=== PATIENT | female | born 1980 | race Caucasian/White ===

== ENCOUNTER → 2020-05-13 | Outpatient (CLI) | payer BC ==
--- NOTE | 2020-05-18 07:26 | BMR ---
EXAMINATION TYPE: MR breast BILAT wo/w con DATE OF EXAM: 05/13/2020 COMPARISON: 3-D bilateral breast mammogram October 02, 2015 BI-RADS 0. Right breast complete ultrasound October 16, 2015 BI-RADS 2. HISTORY: Breast cancer screening, family hx breast/ovarian cancer TECHNIQUE: A series of fat and water weighted images in the long and short axis views of both breasts are obtained in conjunction with dynamic contrast MRI with subtraction technique. The patient was i njected with 6 mL intravenous Gadavist gadolinium contrast. Three-dimensional and additional postpr ocessing imaging is created on independent workstation and reviewed during official interpretation of this study. FINDINGS: Scattered fibroglandular tissue is redemonstrated throughout both breasts. T2 and STIR weig hted images show no significant cystic change in either breast. There is no concerning axillary adeno cody identified bilaterally. T1-weighted images show no suspicious fat-containing masses. Dynamic po stcontrast imaging shows minimal background enhancement bilaterally. Delayed dynamic imaging shows no suspicious internal mammary adenopathy bilaterally. With regards to the right breast. No suspicious skin thickening is seen. No pathologic enhancement or enhancing masses identified. The chest wall is intact. With regards to the left breast, no suspicious skin thickening is seen. No pathologic enhancement or enhancing mass is identified. The chest wall is intact. IMPRESSION: No MRI evidence for invasive malignancy in either breast. BI-RADS 1 negative study right breast. BI-RADS 1 negative study left breast Recommendation: Some consider annual MRI surveillance in high risk patients. ACR advises annual mammo gram in high risk patient before age 40.
== END | disposition home or self-care (01) ==
LOC: RADMRIMAIN 18:38
PROVIDERS: ATTEND Obstetrics & Gynecology
DX: Z12.39 Encounter for other screening for malignant neoplasm of breast (principal); Z80.41 Family history of malignant neoplasm of ovary; Z80.3 Family history of malignant neoplasm of breast
CPT/HCPCS: 77049; C8937; A9585

== ENCOUNTER → 2022-07-19 | Outpatient (CLI) | payer OTHER ==
--- NOTE | 2022-07-20 10:04 | MM ---
Reason for Exam: Screening (asymptomatic). Last mammogram was performed 1 year(s) and 3 month(s) ago. Patient History: Menarche at age 14. Patient has no children. Premenopausal. Maternal grandmother had breast cancer, age 70. Maternal aunt had breast cancer, age 30. Maternal aunt had breast cancer, age 35. Maternal aunt had breast cancer, age 35. Maternal cousin had breast cancer, age 49. Mother had breast cancer, age 28. Risk Values: Destini 5 year model risk: 1.1%. NCI Lifetime model risk: 18.8%. Prior Study Comparison: 02/02/2017 Bilateral MG screening mammo w CAD - 2, [facility] [place]. 11/07/2018 Bilateral MG screening mammo w CAD - 2, [facility] [place]. 05/04/2021 Bilateral MG 3D screening mammo w/cad, [facility] [place]. Tissue Density: The breast tissue is heterogeneously dense. This may lower the sensitivity of mammography. Findings: Analyzed By CAD. The pattern appears symmetrical and stable area No suspicious groups of microcalcifications, spiculated or lobular masses, architectural distortion or other secondary signs of malignancy are mammographically apparent. Overall Assessment: Negative, BI-RAD 1 Management: Screening Mammogram of both breasts in 1 year. A negative mammogram report should not preclude additional follow up of suspicious palpable abnormalities. Patient should continue monthly self breast exam. A clinical breast exam by your physician is recommended on an annual basis and results should be correlated with mammographic findings. Electronically signed and approved by: John Andrews D.O. Radiologis
== END | disposition home or self-care (01) ==
LOC: RADMAMWWP 16:47
PROVIDERS: ATTEND Obstetrics & Gynecology
DX: Z12.31 Encounter for screening mammogram for malignant neoplasm of breast (principal); Z80.3 Family history of malignant neoplasm of breast
CPT/HCPCS: 77063; 77067

== ENCOUNTER → 2023-09-18 | Outpatient (CLI) | payer OTHER ==
--- NOTE | 2023-09-19 14:51 | MM ---
Reason for Exam: Screening (asymptomatic). Last mammogram was performed 1 year(s) and 2 month(s) ago. Patient History: Menarche at age 14. Patient has no children. Premenopausal. Maternal grandmother had breast cancer, age 70. Maternal aunt had breast cancer, age 30. Maternal aunt had breast cancer, age 35. Maternal aunt had breast cancer, age 35. Maternal cousin had breast cancer, age 49. Mother had breast cancer, age 28. Risk Values: Destini 5 year model risk: 1.2%. NCI Lifetime model risk: 18.6%. Prior Study Comparison: 11/07/2018 Bilateral MG screening mammo w CAD - 2, [facility] [place]. 05/04/2021 Bilateral MG 3D screening mammo w/cad, [facility] [place]. 07/19/2022 Bilateral MG 3D screening mammo w/cad, [facility]. Tissue Density: There are scattered areas of fibroglandular density. Findings: Analyzed By CAD. There is no suspicious group of microcalcifications or new suspicious mass. Overall Assessment: Negative, BI-RAD 1 Management: Screening Mammogram of both breasts in [address] [facility] will attempt to contact patient to return for supplemental views and ultrasound if indicated. Patient should continue monthly self-breast exams. A clinical breast exam by your physician is recommended on an annual basis. This exam should not preclude additional follow-up of suspicious palpable abnormalities. Note on Destini scores and lifetime risk: 1. A Destini score greater than 3% is considered moderate risk. If this is the case, consider specialist referral to assess eligibility for a risk reducing agent. 2. If overall lifetime risk for the development of breast cancer is 20% or higher, the patient may qualify for future screening with alternating mammogram and breast MRI. Electronically signed and approved by: Parveen Peguero DO
== END | disposition home or self-care (01) ==
LOC: RADMAMWWP 16:36
PROVIDERS: ATTEND Obstetrics & Gynecology
DX: Z12.31 Encounter for screening mammogram for malignant neoplasm of breast (principal); Z80.3 Family history of malignant neoplasm of breast
CPT/HCPCS: 77063; 77067

== ENCOUNTER → 2024-09-21 | Outpatient (CLI) | payer OTHER ==
--- NOTE | 2024-09-26 13:03 | BMR ---
EXAM DATE: 09/21/2024 EXAM DESCRIPTION: MRI-Breast Bilat (W/WO Contrast) INDICATION: Screening MRI>20% lifetime risk for malignancy presenting for high risk surveillance COMPARISON: Comparison is made with relevant prior imaging in PACS. CONTRAST: 6 cc of Gadobutrol TECHNIQUE: Multiplanar MRI imaging of both breasts was performed with a dedicated breast coil, before and after intravenous administration of gadolinium contrast, using the standard breast mass protocol. Computer-aided detection was used to aid in interpretation. FINDINGS: General breast composition: There are scattered areas of fibroglandular tissue Background parenchymal enhancement: Minimal FINDINGS: Right Breast: Review of the dynamic contrast-enhanced series shows no rapidly enhancing masses, suspicious enhancement patterns or other abnormalities. The T2 weighted series shows no abnormality. Left Breast: Review of the dynamic contrast-enhanced series shows no rapidly enhancing masses, suspicious enhancement patterns or other abnormalities. The T2 weighted series shows no abnormality. IMPRESSION: No MRI evidence of malignancy. BI-RADS Category1- Negative Recommendation: MRI screening in 1 year. Recommend routine screening on schedule, the patient is due for screening mammogram in 09/2024. TIFFANIED
== END | disposition home or self-care (01) ==
LOC: RADMRIMAIN 13:59
PROVIDERS: ATTEND Obstetrics & Gynecology
DX: Z80.3 Family history of malignant neoplasm of breast (principal)
CPT/HCPCS: 77049; A9585